=== PATIENT | male | born 1955 | race Caucasian/White ===

== ENCOUNTER → 2016-11-27 | Outpatient (CLI) | payer MEDICARE, OTHER ==
--- NOTE | 2016-11-28 07:54 | USB ---
Reason for exam: clinical finding. History: Family history of breast cancer in mother at age 42, breast cancer in maternal aunt, breast cancer in paternal aunt, and breast cancer in paternal uncle. Indicated problem(s): palpable abnormality in the left breast. Physical Findings: Nurse Summary: 2cm movable nodule (nurse dw). US Breast LT Left breast ultrasound includes all four quadrants, the retroareolar region and axilla. Finding demonstrates a 2.0 x 1.9 x 3.6cm irregular, solid, hypoechoic lesion at palpable at the posterior nipple. Suspect gynecomastia greater in the left breast though it is enlarging on CT from 2011 to 2016. These results were verbally communicated with the patient and result sheet given to the patient on 11/27/16. ASSESSMENT: Incomplete: need additional imaging evaluation, BI-RAD 0 RECOMMENDATION: Follow-up diagnostic mammogram of both breasts.
--- NOTE | 2016-11-28 07:56 | MM ---
Reason for exam: additional evaluation requested from abnormal screening. Last mammogram was performed 4 years and 6 months ago. History: Family history of breast cancer in mother at age 42, breast cancer in maternal aunt, breast cancer in paternal aunt, and breast cancer in paternal uncle. MG Diagnostic Mammo w CAD GREGORY Bilateral CC and MLO view(s) were taken. Prior study comparison: June 09, 2012, CAD bilateral diagnostic mammogram. The breast tissue is heterogeneously dense. This may lower the sensitivity of mammography. Finding: Architectural distortion in the upper outer quadrant of the right breast. These results were verbally communicated with the patient and result sheet given to the patient on 11/27/16. ASSESSMENT: Suspicious, BI-RAD 4 RECOMMENDATION: Surgical consultation and stereotactic core biopsy of the right breast. Negative mammogram should not deter biopsy if clinically palpable lesion. Called Dr. Delong with mammographic findings and has scheduled an appointment for the patient for 11/30/16 at 12:[address] Pagan. PRELIMINARY REPORT CALLED AND FAXED TO DR. PAGAN ON 11/28/16 /TP.
== END | disposition home or self-care (01) ==
LOC: RADUSWWP 15:05
PROVIDERS: ATTEND Family Medicine
DX: R92.8 Other abnormal and inconclusive findings on diagnostic imaging of breast (principal); N62 Hypertrophy of breast
CPT/HCPCS: 76641; G0204

== ENCOUNTER → 2016-11-30 | Outpatient (CLI) | payer MEDICARE, OTHER ==
--- NOTE | 2016-11-30 14:10 | USB ---
Reason for exam: clinical finding. History: Family history of breast cancer in mother at age 42, breast cancer in maternal aunt, breast cancer in paternal aunt, and breast cancer in paternal uncle. US Breast RT Right breast ultrasound includes all four quadrants, the retroareolar region and axilla. Finding demonstrates a 1.9 x 2.0 x 2.7cm irregular, hypoechoic lesion with strong shadowing at the lateral aspect at the nipple. This area of strong shadowing should be biopsied. These results were verbally communicated with the patient and result sheet given to the patient on 11/30/16. ASSESSMENT: Suspicious, BI-RAD 4 RECOMMENDATION: Ultrasound core biopsy of the right breast. Called with mammographic findings and has scheduled an appointment with Dr. Pagan. Biopsy scheduled for 12/05/16 at 1 o'clock. PRELIMINARY REPORT CALLED AND FAXED TO DR. PAGAN ON 11/30/16.
== END | disposition home or self-care (01) ==
LOC: RADUSWWP 12:54
PROVIDERS: ATTEND Surgery
DX: R92.8 Other abnormal and inconclusive findings on diagnostic imaging of breast (principal)

== ENCOUNTER → 2016-12-05 | Day surgery (SDC) | payer MEDICARE, OTHER ==
[2016-12-05 12:51] VITALS: RESP 16; BMI 28.5
[2016-12-05 14:23] VITALS: BP 115/73; PULSE 76; TEMP 98.1
--- NOTE | 2016-12-05 14:38 | MM ---
EXAMINATION TYPE: MG diagnostic mammo BI wo CAD, US biopsy breast VAD LT, US biopsy breast VAD RT DATE OF EXAM: 12/05/2016 CLINICAL HISTORY: R92.8 ABNORMAL MAMMOGRAM. TECHNIQUE: Ultrasound guided core biopsy of bilateral breasts. COMPARISON: Recent bilateral breast mammogram and ultrasound as well as chest CT studies from 2015 and 2011. FINDINGS: The procedure of ultrasound guided core biopsy was explained to the patient. Benefits, alternatives, and risks were discussed. An informed consent was then obtained. The patient was placed in supine positioning for imaging and for the procedure. Preprocedure imaging redemonstrates lobulated heterogeneous hypoechoic tissue posterior to the nipple in the bilateral breasts. The overlying skin was prepped and draped in usual sterile fashion. Lidocaine was used as anesthetic into the skin. Lidocaine with epinephrine is used as anesthetic into the deeper tissue up to area of concern in the bilateral. A laxmi was made with surgical scalpel. Under ultrasound guidance, a 12-gauge vacuum assisted biopsy gun device was used to obtain 3 core samples bilaterally. Following this, a biopsy clip was left in lesion. The patient tolerated the procedure well without any immediate complication. The patient was kept in the radiology department for short stay after the procedure and then discharged home in stable condition. Postprocedure single view mammogram shows successful deployment of clips bilaterally IMPRESSION: Successful, uncomplicated ultrasound guided core biopsy of area of concern in the bilateral breasts, full pathology results to follow. Low index of suspicion noted at time of procedure. Favor bilateral gynecomastia. Pathology Results: Benign A. BREAST, LEFT SITE A POSTERIOR NIPPLE, ULTRASOUND GUIDED CORE BIOPSY: PENDING CONSULTATION, SEE ADDENDUM/FINAL DIAGNOSIS. B. BREAST, RIGHT SITE A POSTERIOR NIPPLE, ULTRASOUND GUIDED CORE BIOPSY: PENDING CONSULTATION, SEE ADDENDUM/FINAL DIAGNOSIS. ADDENDUM REPORT LEFT BREAST, POSTERIOR, BIOPSY ([id number], PART A-B; 12/05/16): GYNECOMASTIA. SEE LETTER. Recommendation Manage clinically. MTDD
== END ==
LOC: RADUSWWP 12:29
PROVIDERS: ATTEND Surgery
DX: N62 Hypertrophy of breast (principal); R92.8 Other abnormal and inconclusive findings on diagnostic imaging of breast
CPT/HCPCS: 88305; 88342; 19083; 19084; G0204; A4648; J2001

== ENCOUNTER → 2017-04-10 | Outpatient (CLI) | payer MEDICARE, OTHER ==
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
== END | disposition home or self-care (01) ==
LOC: RADUSWWP 11:54
PROVIDERS: ATTEND Family Medicine
DX: K80.20 Calculus of gallbladder without cholecystitis without obstruction (principal)
CPT/HCPCS: 76700

== ENCOUNTER → 2017-04-27 | Outpatient (CLI) | payer MEDICARE, OTHER | END | disposition home or self-care (01) | LOC: RADPETMAIN 14:35 | PROVIDERS: ATTEND Internal Medicine Hematology & Oncology | DX: Z53.9 Procedure and treatment not carried out, unspecified reason (principal) ==

== ENCOUNTER → 2017-05-04 | Outpatient (CLI) | payer MEDICARE, OTHER ==
--- NOTE | 2017-05-06 10:02 | PE ---
EXAMINATION TYPE: PET CT fusion skull to thigh DATE OF EXAM: 05/04/2017 COMPARISON: Complete abdominal ultrasound April 10, 2017. CTA chest September 08, 2015. HISTORY: Colorectal cancer with liver metastases diagnosed on liver biopsy April 13, 2017 TECHNIQUE: Following the intravenous administration of 13.994 mCi of F-18 FDG, whole body images are performed from the skull base to the midthigh. Images are reviewed on the computer in the coronal, axial, and sagittal planes. Reconstructed rotating images are created on independent workstation and reviewed on the computer. A localization and attenuation correction CT is performed in conjunction with the PET scan. SCAN: Initial Scan FINDINGS: SKULL BASE AND NECK: No suspicious hypermetabolic uptake is seen. CHEST, MEDIASTINUM, AND HILAR REGION: No suspicious hypermetabolic uptake is seen. ABDOMEN AND PELVIS: There are multiple heterogeneous hypodense lesions scattered throughout the liver consistent with hepatic metastatic disease. Posterior segment right hepatic lobe lesion measures rou ghly 7.7 cm long axis axial image 136 with max SUV of 10.8. Irregular anterior right hepatic lobe les ion measures roughly 7.4 cm on long axis with max SUV of 11.21. There is irregular wall thickening in the cecum with focal hypermetabolic uptake, max SUV is 21.02 on axial image 210 likely reflecting site of primary neoplasm. Wall is slightly irregular at this level with suspected subcentimeter lymph node axial image 207. Normal bowel and bladder uptake is otherwise visualized. No suspicious bowel dilatation is seen. OSSEOUS STRUCTURES: No suspicious hypermetabolic uptake is present. OTHER CT: There is mild calcified plaque bilateral carotid bulbs. Anterior fusion plate in the lower cervical spine is noted.. Bilateral gynecomastia is seen. There is posterior bibasilar linear scarring and/or atelectasis. There is multilevel posterior interpedicular rods and screws throughout the lumbar spine. There is po sterior decompression with multilevel laminectomy defects and spinous process resection. Cholecystectomy clips are noted. Small vessel calcification is seen in the bilateral groin region. IMPRESSION: Primary neoplasm likely at level of cecum. Hepatic metastatic disease is noted.
== END | disposition home or self-care (01) ==
LOC: RADPETMAIN 10:36
PROVIDERS: ATTEND Internal Medicine Hematology & Oncology
DX: C18.9 Malignant neoplasm of colon, unspecified (principal); C78.7 Secondary malignant neoplasm of liver and intrahepatic bile duct
CPT/HCPCS: 78815; A9552

== ENCOUNTER 2017-05-16 11:56 | Day surgery (SDC) | payer MEDICARE, OTHER ==
[2017-05-15 11:47] VITALS: BMI 25.1
[~2017-05-16 11:56] MED LIST: HEPARIN SODIUM,PORCINE 5,000 UNIT/ML 1 ML VIAL SQ ONE; LACTATED RINGERS 1,000 ML IV SCH; MORPHINE SULFATE 4 MG/ML SYRINGE IV PRN; Pre Op ABX Message 1 EACH MISC MISCELLANE ONE; fentaNYL (PF) 50 MCG/ML 2 ML AMP IV PRN
[2017-05-16 12:19] VITALS: TEMP 97.7
[2017-05-16 12:33] LABS: Glucose,Whole Blood 197 mg/dL (75-99)
[2017-05-16] MEDS ORDERED: LIDOCAINE 1% 20 ML VIAL (10MG/ML) FOR IV START INTRADERMA ONE (12:36)
[2017-05-16] MEDS ORDERED: DEXAMETHASONE SOD PHOSPHATE 10 MG/ML 1 ML VIAL IV ONE (12:41)
[2017-05-16] MEDS ORDERED: ONDANSETRON 4 MG/2 ML VIAL IVP ONE (12:41)
[2017-05-16] MEDS ORDERED: HYDROmorphone (PF) 1 MG/ML ONE (12:49)
[2017-05-16] MEDS ORDERED: MIDAZOLAM 2 MG/2 ML VIAL ONE (12:49)
[2017-05-16] MEDS ORDERED: PROPOFOL 10 MG/ML 20 ML VIAL IV ONE (12:49)
[2017-05-16] MEDS ORDERED: fentaNYL (PF) 50 MCG/ML 2 ML AMP ONE (12:49)
[2017-05-16] MEDS ORDERED: LIDOCAINE 1% INJ 10MG/ML (20 ML MDV) ONE (12:49)
[2017-05-16] MEDS ORDERED: HEPARIN SODIUM,PORCINE 100 UNIT/ML 5 ML VIAL IV ONE (13:20)
[2017-05-16] MEDS ORDERED: SODIUM CHLORIDE 0.9% 50 ML with ceFAZolin 2,000 MG IV ONE ×2 (13:20)
[2017-05-16] MEDS ORDERED: BUPIVACAINE (PF) 0.25% 30 ML VIAL SQ ONE (13:20)
[2017-05-16] MEDS ORDERED: LACTATED RINGERS 1,000 ML IV ONE (13:38)
[2017-05-16] MEDS ORDERED: NALOXONE 0.4 MG/ML 1 ML VIAL IV PRN (13:58)
--- NOTE | 2017-05-16 14:07 | P.OP ---
Date of Procedure: 05/16/17 Preoperative Diagnosis: Metastatic colon cancer Postoperative Diagnosis: Metastatic colon cancer Procedure(s) Performed: Mediport placement with fluoroscopic assistance Implants: Mediport Anesthesia: local Surgeon: Nehemiah Martin Pathology: none sent Condition: stable Disposition: same day Indications for Procedure: 61-year-old gentleman with a history of metastatic colon cancer. According to discussion with weaned him and his oncologist, plan for chemotherapy was established. Secondary to this, the patient presents for Mediport placement. The patient was explained the risks, benefits and alternatives to the procedure. He did provide his consent prior to attending the operating suite. Operative Findings: Mediport was noted to have adequate flush and withdrawal and was noted to be in place under fluoroscopy. Description of Procedure: The patient was brought into the operating suite and placed in supine position on operating table. Sedation was provided by anesthesia and the patient was prepped and draped in regular sterile fashion. Local anesthetic was administered. A needle was then placed into the subclavian vein. A guidewire was used and location was noted by fluoroscopy. Once it was noted to be in appropriate position, a pocket was created to hold the Mediport. A dilator sheath was then placed over the guidewire under fluoroscopic guidance. A catheter was then placed between the pocket and the dilator sheath. This was noted to be in place. The dilator sheath was then removed. The port was then attached to the catheter and locked into place. The port was secured to the chest wall to the prepectoral fascia. This was done with a 2-0 Prolene suture. The port was then attached to Mayberry needle and was noted to flush and withdraw with ease. The skin incision was closed with a running 4-0 Vicryl subcuticular suture. Heparin lock was administered into the Mediport. Sterile dressing was applied. The patient was then awakened in the operating suite.
--- NOTE | 2017-05-16 14:08 | P.DS ---
Providers Attending physician: Nehemiah Martin DO Primary care physician: Demarcus Delong Pertinent Studies: Chest x-ray postop Procedures: Mediport placement with fluoroscopic guidance Patient Condition at Discharge: Good Plan - Discharge Summary New Discharge Prescriptions: Continue oxyCODONE-APAP 10-325MG [Percocet 10-325 mg] 1 tab PO Q4-6H PRN PRN Reason: Pain fentaNYL 100MCG/HR PATCH [Duragesic 100MCG/HR] 1 patch TRANSDERM Q48H Diazepam [Valium] 10 mg PO DAILY PRN PRN Reason: Anxiety Venlafaxine HCl ER [Effexor XR] 150 mg PO DAILY Docusate [Colace] 100 mg PO DAILY Atorvastatin [Lipitor] 20 mg PO PC-SUPPER metFORMIN HCL [Glucophage] 1,000 mg PO BID glipiZIDE XL [Glucotrol XL] 10 mg PO DAILY Lidocaine 5% Patch [Lidoderm 5% Patch] 1 patch TRANSDERM DAILY PRN PRN Reason: Pain Venlafaxine HCl ER [Effexor XR] 75 mg PO DAILY Omeprazole [PriLOSEC] 20 mg PO BID fentaNYL 75MCG/HR PATCH [Duragesic 75MCG/HR] 1 patch TRANSDERM Q48H Ibuprofen [Motrin] 800 mg PO Q6H PRN PRN Reason: Pain Discharge Medication List Diazepam [Valium] 10 mg PO DAILY PRN 09/21/13 [History] Venlafaxine HCl ER [Effexor XR] 150 mg PO DAILY 09/21/13 [History] fentaNYL 100MCG/HR PATCH [Duragesic 100MCG/HR] 1 patch TRANSDERM Q48H 09/21/13 [ History] oxyCODONE-APAP 10-325MG [Percocet 10-325 mg] 1 tab PO Q4-6H PRN 09/21/13 [ History] Docusate [Colace] 100 mg PO DAILY 09/22/13 [History] Atorvastatin [Lipitor] 20 mg PO PC-SUPPER 12/03/16 [History] metFORMIN HCL [Glucophage] 1,000 mg PO BID 12/03/16 [History] Lidocaine 5% Patch [Lidoderm 5% Patch] 1 patch TRANSDERM DAILY PRN 04/12/17 [ History] Omeprazole [PriLOSEC] 20 mg PO BID 04/12/17 [History] Venlafaxine HCl ER [Effexor XR] 75 mg PO DAILY 04/12/17 [History] fentaNYL 75MCG/HR PATCH [Duragesic 75MCG/HR] 1 patch TRANSDERM Q48H 04/12/17 [ History] glipiZIDE XL [Glucotrol XL] 10 mg PO DAILY 04/12/17 [History] Ibuprofen [Motrin] 800 mg PO Q6H PRN 05/15/17 [History] Follow up Appointment(s)/Referral(s): Nehemiah Martin DO [Doctor of Osteopathic Medicine] - As Needed (Please call office with any questions or concerns with mediport) Activity/Diet/Wound Care/Special Instructions: OK to remove dressing in [address] dressing as needed OK to begin chemotherapy OK to shower on 05/17/2017 Discharge Disposition: HOME SELF-CARE
[2017-05-16 14:13] VITALS: RESP 16
[2017-05-16 14:28] LABS: Glucose,Whole Blood 175 mg/dL (75-99)
--- NOTE | 2017-05-16 14:34 | XR ---
EXAMINATION TYPE: XR chest 1V DATE OF EXAM: 05/16/2017 COMPARISON: Prior chest x-ray 10/29/2013 HISTORY: Mediport placement TECHNIQUE: Single frontal view of the chest is obtained. FINDINGS: There is been interval placement of a Mediport over the right pectoral region, distal tip of the catheter is within the right atrium. No evident pneumothorax. Right subclavian atelectasis. No pleural effusion. Postop change again noted cervical spine. IMPRESSION: No evident complication status post Mediport placement.
[2017-05-16 14:44] VITALS: PULSE 81
[2017-05-16 14:45] VITALS: BP 113/72
--- NOTE | 2017-05-16 15:58 | FL ---
Fluoroscopy HISTORY: Mediport insertion 1.14 minutes fluoroscopy time supplied to the referring clinician. 1 intraoperative C-arm images doc ument the procedure. See dictated report from general surgery.
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
== END 2017-05-16 15:19 | disposition home or self-care (01) ==
LOC: OR 11:56
PROVIDERS: ATTEND Surgery
DX: C18.9 Malignant neoplasm of colon, unspecified (principal); E78.5 Hyperlipidemia, unspecified; K21.9 Gastro-esophageal reflux disease without esophagitis; E11.9 Type 2 diabetes mellitus without complications; Z79.899 Other long term (current) drug therapy; G89.29 Other chronic pain; Z90.49 Acquired absence of other specified parts of digestive tract; Z79.84 Long term (current) use of oral hypoglycemic drugs; Z79.891 Long term (current) use of opiate analgesic
CPT/HCPCS: 36561; 77001; 71045; C1788; J2250; J1644; J1642; J1100; J2405; J2001; J3010; J1170; J0690; J2704

== ENCOUNTER 2017-05-22 13:38 | Day surgery (SDC) | payer MEDICARE, OTHER ==
[2017-05-21 12:52] VITALS: BMI 36.5
[2017-05-22 14:04] VITALS: BP 136/76; PULSE 109; RESP 18; TEMP 98.1
--- NOTE | 2017-05-22 17:46 | IR ---
Port-A-Cath gram HISTORY: Malfunctioning Port-A-Cath Real-time fluoroscopy performed of the Port-A-Cath. Gentle hand injection of contrast material perfor med under fluoroscopic guidance. Following contrast injection there was no complication. Catheter was flushed with sterile saline and subsequently heparin flush. 624 intraoperative images. 1.2 minutes fluoroscopy time. Port-A-Cath in the right pectoral region shows a kink in the proximal catheter. Contrast material cou rses through the catheter, there is no leak. Distal tip of the catheter is within the right atrium. IMPRESSION: Kink in the proximal catheter, tip of the catheter abuts the atrial wall.
== END 2017-05-22 14:53 | disposition home or self-care (01) ==
LOC: CATHCVL 13:38
PROVIDERS: ATTEND Radiology Diagnostic Radiology
DX: T82.594A Other mechanical complication of infusion catheter, initial encounter (principal); C18.0 Malignant neoplasm of cecum; C78.7 Secondary malignant neoplasm of liver and intrahepatic bile duct; Z71.3 Dietary counseling and surveillance; Z79.84 Long term (current) use of oral hypoglycemic drugs; Y83.8 Other surgical procedures as the cause of abnormal reaction of the patient, or of later complication, without mention of misadventure at the time of the procedure; Z79.899 Other long term (current) drug therapy
CPT/HCPCS: 36598

== ENCOUNTER → 2017-05-24 | Day surgery (SDC) | payer MEDICARE, OTHER ==
[~2017-05-24] MED LIST changes: +BUPIVACAINE (PF) 0.5% 30 ML VIAL SQ ONE; +DEXAMETHASONE SOD PHOSPHATE 10 MG/ML 1 ML VIAL IV ONE; +HEPARIN SODIUM,PORCINE 100 UNIT/ML 5 ML VIAL IV ONE; -HEPARIN SODIUM,PORCINE 5,000 UNIT/ML 1 ML VIAL SQ ONE; +LIDOCAINE 1% 20 ML VIAL (10MG/ML) FOR IV START INTRADERMA ONE; +MIDAZOLAM 2 MG/2 ML VIAL IV PRN; +MIDAZOLAM 2 MG/2 ML VIAL ONE; +NALOXONE 0.4 MG/ML 1 ML VIAL IV PRN; +ONDANSETRON 4 MG/2 ML VIAL IVP ONE; +PROPOFOL 10 MG/ML 20 ML VIAL IV ONE; +SCOPOLAMINE 1.5MG/72HR PATCH TRANSDERM ONE; +ceFAZolin IN SWFI 2 GM/20 ML SYRINGE IVP ONE; +fentaNYL (PF) 50 MCG/ML 2 ML AMP IV ONE; -fentaNYL (PF) 50 MCG/ML 2 ML AMP IV PRN; +fentaNYL (PF) 50 MCG/ML 2 ML AMP ONE
[2017-05-24 14:02] LABS: Glucose,Whole Blood 167 mg/dL (75-99)
--- NOTE | 2017-05-24 16:06 | FL ---
Fluoroscopy HISTORY: Port-A-Cath placement 20 seconds fluoroscopy time supplied to the referring clinician. 1 intraoperative C-arm images docum ent the procedure. See dictated report from general surgery.
--- NOTE | 2017-05-24 16:12 | P.OP ---
Date of Procedure: 05/24/17 Preoperative Diagnosis: Malfunctioning Mediport Postoperative Diagnosis: Malfunctioning Mediport Procedure(s) Performed: Removal Mediport Placement of 8-English mediport Implants: 8-English Mediport Anesthesia: local Surgeon: Nehemiah Martin Estimated Blood Loss (ml): 2 Pathology: none sent Condition: stable Disposition: same day Indications for Procedure: 61-year-old male with history of metastatic colon cancer presented secondary to Mediport malfunction. His previously placed Mediport was not withdrawing blood but was able to infuse. Due to the pressure that his home therapy infusion would run, his Mediport continued to malfunction. On examination with radiology , there was a possible kinking of the proximal portion of the Mediport. Secondary to this, we plan on replacing this Mediport with an 8-English Mediport under fluoroscopy. The patient was explained the risks, benefits and alternatives to this procedure and provided consent prior to attending the operating suite. Operative Findings: Malfunctioning Mediport, proximal kink in catheter Description of Procedure: The patient was brought into the operating suite and placed in supine position on the operating table. Sedation was provided by anesthesia. The patient was then prepped and draped in regular sterile fashion. Local anesthetic was administered over the previous Mediport site. An incision was made over the previous scar and extended laterally. Dissection was carried to the Mediport and the catheter was noted to be kinked at the hub connecting the catheter to the port. The port was removed from the sutures that connected the port to the prepectoral fascia. The port was then cut from the catheter. A 0.035 Glidewire was placed into the catheter under fluoroscopic guidance and was noted to be in appropriate position. This catheter was then removed. A dilator sheath was placed over the Glidewire under fluoroscopic guidance. The Glidewire and the dilator sheath was removed. The 8-English catheter was then placed through the dilator sheath and under fluoroscopic guidance. The catheter was cut and attached to the port. The lock was then placed. The port was then sutured into place with the prepectoral fascia. A Mayberry needle was inserted into the port and adequate withdrawal and flushing was noted. Multiple images were taken under fluoroscopy to ensure no kinking. Heparin lock was then placed. 3-0 Vicryl sutures were used to close the subdermal layer in interrupted fashion. A 4-0 Vicryl subcuticular suture was then used to close the skin and running fashion. The patient was awakened in the operating suite and taken to postanesthesia care unit in stable condition.
[2017-05-24 16:18] VITALS: TEMP 97.8
--- NOTE | 2017-05-24 16:36 | XR ---
EXAMINATION TYPE: XR chest 1V DATE OF EXAM: 05/24/2017 COMPARISON: 05/16/2017 HISTORY: Mediport check TECHNIQUE: Single frontal view of the chest is obtained. FINDINGS: There is no focal air space opacity, pleural effusion, or pneumothorax seen. The cardiac silhouette size is within normal limits. The osseous structures are intact. Mediport catheter seen with the tip overlying the SVC. No pneumothorax. Diffuse osteopenia and arthropathy shoulders. Postsu rgical change overlying the cervical spine. IMPRESSION: Mediport appears with the tip overlying the SVC and no sizable pneumothorax.
[2017-05-24 16:49] VITALS: BP 122/68; PULSE 79; RESP 15
== END ==
LOC: OR 13:28
PROVIDERS: ATTEND Surgery
DX: T82.514A Breakdown (mechanical) of infusion catheter, initial encounter (principal); C78.5 Secondary malignant neoplasm of large intestine and rectum; E78.5 Hyperlipidemia, unspecified; E11.9 Type 2 diabetes mellitus without complications; K21.9 Gastro-esophageal reflux disease without esophagitis; Z79.84 Long term (current) use of oral hypoglycemic drugs; Z79.1 Long term (current) use of non-steroidal anti-inflammatories (NSAID); Z79.899 Other long term (current) drug therapy
CPT/HCPCS: 77001; 71045; 36582; C1788; J2250; J1642; J1100; J2405; J3010; J2704; J0690

== ENCOUNTER 2017-06-05 21:51 | Emergency (ER) | payer MEDICARE, OTHER ==
[2017-06-05 22:00] VITALS: RESP 18
[2017-06-05] MEDS ORDERED: ONDANSETRON 4 MG/2 ML VIAL IVP STA ×2 (22:07→23:59)
[2017-06-05] MEDS ORDERED: SODIUM CHLORIDE 0.9% 1,000 ML IV STA ×2 (22:07)
[2017-06-05] MEDS ORDERED: MORPHINE SULFATE 4 MG/ML SYRINGE IVP STA (22:17)
--- NOTE | 2017-06-05 22:17 | ED ---
General Adult HPI - General Chief complaint: Weakness Stated complaint: Cancer complications Time Seen by Provider: 06/05/17 21:57 Source: patient, RN notes reviewed, old records reviewed Mode of arrival: ambulatory Limitations: no limitations - History of Present Illness Initial comments: This is a 61-year-old male the ER for evaluation. Patient is today for evaluation regards to weakness. Patient currently going through chemotherapy decreased appetite and eating and drinking appropriately. Patient was sent in by his oncologist for fluid resuscitation. Patient himself aside from feeling weakness with no appetite denies complaints no chest pain or shortness of breath no fevers states that he does have pain but this is normal pain - Related Data Home Medications Medication Instructions Recorded Confirmed Diazepam [Valium] 10 mg PO DAILY PRN 09/21/13 06/05/17 Venlafaxine HCl ER [Effexor XR] 150 mg PO DAILY 09/21/13 06/05/17 fentaNYL 100MCG/HR PATCH 1 patch TRANSDERM Q48H 09/21/13 06/05/17 [Duragesic 100MCG/HR] metFORMIN HCL [Glucophage] 1,000 mg PO BID 12/03/16 06/05/17 Lidocaine 5% Patch [Lidoderm 5% 1 patch TRANSDERM DAILY PRN 04/12/17 06/05/17 Patch] Omeprazole [PriLOSEC] 20 mg PO BID 04/12/17 06/05/17 Venlafaxine HCl ER [Effexor XR] 75 mg PO DAILY 04/12/17 06/05/17 fentaNYL 75MCG/HR PATCH [Duragesic 1 patch TRANSDERM Q48H 04/12/17 06/05/17 75MCG/HR] glipiZIDE XL [Glucotrol XL] 10 mg PO DAILY 04/12/17 06/05/17 Ibuprofen [Motrin] 800 mg PO Q6H PRN 05/15/17 06/05/17 Ondansetron [Zofran] 4 mg PO Q8HR PRN 06/05/17 06/05/17 Polyethylene Glycol 3350 [Miralax] 17 gm PO QAM 06/05/17 06/05/17 Sennosides-Docusate Sodium 1 tab PO HS 06/05/17 06/05/17 [Senokot-S] oxyCODONE HCL [Roxicodone] 15 mg PO TID PRN 06/05/17 06/05/17 Allergies Allergy/AdvReac Type Severity Reaction Status Date / Time No Known Allergies Allergy Verified 06/05/17 22:27 Review of Systems ROS Statement: Those systems with pertinent positive or pertinent negative responses have been documented in the HPI. ROS Other: All systems not noted in ROS Statement are negative. Past Medical History Past Medical History: Blood Disorder, Cancer, GERD/Reflux, Hyperlipidemia, Musculoskeletal Disorder Additional Past Medical History / Comment(s): Chronic Back Pain, DDD; NT LT SCIATIC AREA TO TOES. Hiatal Hernia. ANEMIA., COLON/LIVER CANCER History of Any Multi-Drug Resistant Organisms: None Reported Past Surgical History: Back Surgery, Cholecystectomy Additional Past Surgical History / Comment(s): BACK SURG X5, HAS HARDWARE. Splenectomy, Abdominal surgery unspecified, Endoscopy x30. LIVER BX W/ LAP DARRON 04/13/17. PORT A CATH, Past Anesthesia/Blood Transfusion Reactions: No Reported Reaction Additional Past Anesthesia/Blood Transfusion Reaction / Comment(s): Got 9 units of blood when had spleen out in 1977 Past Psychological History: Depression Smoking Status: Never smoker Past Alcohol Use History: None Reported Past Drug Use History: None Reported - Past Family History Mother Family Medical History: Cancer General Exam Limitations: no limitations General appearance: alert, in no apparent distress Head exam: Present: atraumatic, normocephalic, normal inspection Eye exam: Present: normal appearance, PERRL, EOMI. Absent: scleral icterus, conjunctival injection, periorbital swelling ENT exam: Present: normal exam, mucous membranes moist Neck exam: Present: normal inspection. Absent: tenderness, meningismus, lymphadenopathy Respiratory exam: Present: normal lung sounds bilaterally. Absent: respiratory distress, wheezes, rales, rhonchi, stridor Cardiovascular Exam: Present: regular rate, normal rhythm, normal heart sounds. Absent: systolic murmur, diastolic murmur, rubs, gallop, clicks GI/Abdominal exam: Present: soft, normal bowel sounds. Absent: distended, tenderness, guarding, rebound, rigid Extremities exam: Present: normal inspection, full ROM, normal capillary refill. Absent: tenderness, pedal edema, joint swelling, calf tenderness Back exam: Present: normal inspection Neurological exam: Present: alert, oriented X3, CN II-XII intact Psychiatric exam: Present: normal affect, normal mood Skin exam: Present: warm, dry, intact, normal color. Absent: rash Course Vital Signs 06/05/17 06/05/17 06/05/17 21:53 22:38 23:29 Temperature 98.9 F Pulse Rate 88 75 87 Respiratory 18 18 18 Rate Blood Pressure 140/82 136/73 133/77 O2 Sat by Pulse 98 100 100 Oximetry 06/06/17 06/06/17 00:05 01:07 Temperature 97.7 F Pulse Rate 85 72 Respiratory 18 18 Rate Blood Pressure 128/77 137/72 O2 Sat by Pulse 100 97 Oximetry - Reevaluation(s) Reevaluation #1: 06/05/17 22:16 Medical record is reviewed EKG Findings - EKG Comments: EKG Findings:: EKG shows sinus rhythm rate of 88, AK 144, QRS 06, QTc 467 Medical Decision Making - Medical Decision Making 61 male the ER for evaluation of weakness, comes in for fluid resuscitation. Patient feels better can be discharged home - Lab Data Result diagrams: 06/05/17 22:01 06/05/17 22:01 Lab Results 06/05/17 06/05/17 Range/Units 22:01 22:01 WBC 4.5 (3.8-10.6) k/uL RBC 3.51 L (4.30-5.90) m/uL Hgb 8.3 L (13.0-17.5) gm/dL Hct 26.9 L (39.0-53.0) % MCV 76.9 L D (80.0-100.0) fL MCH 23.6 L (25.0-35.0) pg MCHC 30.7 L (31.0-37.0) g/dL RDW 16.8 H (11.5-15.5) % Plt Count 232 (150-450) k/uL Neutrophils % 68 % Lymphocytes % 24 % Monocytes % 4 % Eosinophils % 2 % Basophils % 0 % Neutrophils # 3.0 (1.3-7.7) k/uL Lymphocytes # 1.1 (1.0-4.8) k/uL Monocytes # 0.2 (0-1.0) k/uL Eosinophils # 0.1 (0-0.7) k/uL Basophils # 0.0 (0-0.2) k/uL Hypochromasia Slight Anisocytosis Slight Microcytosis Slight Sodium 138 (137-145) mmol/L Potassium 3.1 L (3.5-5.1) mmol/L Chloride 94 L (98-107) mmol/L Carbon Dioxide 33 H (22-30) mmol/L Anion Gap 11 mmol/L BUN 10 (9-20) mg/dL Creatinine 0.50 L (0.66-1.25) mg/dL Est GFR (CKD-EPI)AfAm >90 (>60 ml/min/1.73 sqM) Est GFR (CKD-EPI)NonAf >90 (>60 ml/min/1.73 sqM) Glucose 130 H (74-99) mg/dL Calcium 8.8 (8.4-10.2) mg/dL Phosphorus 3.2 (2.5-4.5) mg/dL Magnesium 1.8 (1.6-2.3) mg/dL Total Bilirubin 0.5 (0.2-1.3) mg/dL AST 26 (17-59) U/L ALT 16 L (21-72) U/L Alkaline Phosphatase 234 H (38-126) U/L Total Protein 6.2 L (6.3-8.2) g/dL Albumin 3.1 L (3.5-5.0) g/dL - Radiology Data Radiology results: report reviewed (CT brain is negative for acute disease), image reviewed Disposition Clinical Impression: Dehydration, Weakness Disposition: HOME SELF-CARE Condition: Good Instructions: Weakness (ED) Referrals: Demarcus Delong DO [Primary Care Provider] - 1-2 days
[2017-06-05 22:24] LABS: Anisocytosis Slight; Basophils % (A) 0 %; Eosinophils # (A) 0.1 k/uL (0-0.7); Eosinophils % (A) 2 %; HCT 26.9 % (39.0-53.0); HGB 8.3 gm/dL (13.0-17.5); Hypochromasia Slight; Lymphocytes # (A) 1.1 k/uL (1.0-4.8); Lymphocytes % (A) 24 %; MCH 23.6 pg (25.0-35.0); MCHC 30.7 g/dL (31.0-37.0); Mean Platelet Volume 7.8; Microcytosis Slight; Monocytes # (A) 0.2 k/uL (0-1.0); Monocytes % (A) 4 %; Neutrophils % (A) 68 %; Platelet Count 232 k/uL (150-450); RBC 3.51 m/uL (4.30-5.90); RDW 16.8 % (11.5-15.5); WBC 4.5 k/uL (3.8-10.6)
[2017-06-05 22:27] LABS: MCV 76.9 fL (80.0-100.0)
[2017-06-05] MEDS ORDERED: MORPHINE SULFATE/PF 10MG/10ML VL ONE (22:35)
[2017-06-05 22:37] LABS: ALT 16 U/L (21-72); AST 26 U/L (17-59); Albumin 3.1 g/dL (3.5-5.0); Alkaline Phosphatase 234 U/L (38-126); Anion Gap 11 mmol/L; Blood Urea Nitrogen 10 mg/dL (9-20); Calcium 8.8 mg/dL (8.4-10.2); Carbon Dioxide 33 mmol/L (22-30); Chloride 94 mmol/L (98-107); Glucose 130 mg/dL (74-99); Magnesium 1.8 mg/dL (1.6-2.3); Phosphorus 3.2 mg/dL (2.5-4.5); Potassium 3.1 mmol/L (3.5-5.1); Sodium 138 mmol/L (137-145); Total Bilirubin 0.5 mg/dL (0.2-1.3); Total Protein 6.2 g/dL (6.3-8.2)
[2017-06-05] MEDS ORDERED: MORPHINE SULFATE/PF 10MG/10ML VL IVP STA (22:37)
[2017-06-05] MEDS ORDERED: POTASSIUM CHLORIDE ER 20 MEQ TAB.ER PO STA (23:11)
--- NOTE | 2017-06-05 23:32 | CT ---
EXAMINATION TYPE: CT brain wo con DATE OF EXAM: 06/05/2017 COMPARISON: NONE HISTORY: weakness CT DLP: 1029.90 mGycm Automated exposure control for dose reduction was used. FINDINGS: There is some cerebral cortical atrophy. There is patchy hypodensity in the periventricular white mat ter. There is no mass effect nor midline shift. There is no sign of intracranial hemorrhage. Calvariu m is intact. IMPRESSION: ATROPHY AND CHRONIC SMALL VESSEL ISCHEMIA. NO ACUTE INTRACRANIAL ABNORMALITY.
[2017-06-06 00:09] VITALS: TEMP 97.7
[2017-06-06] MEDS ORDERED: POTASSIUM CHLORIDE ER 20 MEQ TAB.ER PO STA (00:15)
[2017-06-06] MEDS ORDERED: SODIUM CHLORIDE 0.9% 1,000 ML IV STA (00:29)
[2017-06-06 01:08] VITALS: BP 137/72; PULSE 72
== END 2017-06-06 01:18 | disposition home or self-care (01) ==
LOC: EC 21:51
DX: E86.0 Dehydration (principal); R53.1 Weakness; K21.9 Gastro-esophageal reflux disease without esophagitis; E78.5 Hyperlipidemia, unspecified; D64.9 Anemia, unspecified; C18.9 Malignant neoplasm of colon, unspecified; C78.7 Secondary malignant neoplasm of liver and intrahepatic bile duct; F32.9 Major depressive disorder, single episode, unspecified; Z79.84 Long term (current) use of oral hypoglycemic drugs; Z79.899 Other long term (current) drug therapy; Z53.8 Procedure and treatment not carried out for other reasons
CPT/HCPCS: 99285; 96374; 96375; 96376; 36415; 93005; 80053; 83735; 84100; 85025; 70450; 96361 ×3; J2405 ×2; J2270

== ENCOUNTER → 2017-08-17 | Outpatient (CLI) | payer MEDICARE, OTHER ==
--- NOTE | 2017-08-18 13:19 | PE ---
EXAMINATION TYPE: PET CT fusion skull to thigh DATE OF EXAM: 08/17/2017 COMPARISON: Prior PET/CT May 04, 2017. HISTORY: Colorectal cancer progress study after completing chemotherapy August 05. TECHNIQUE: Following the intravenous administration of 12.914 mCi of F-18 FDG, whole body images are performed from the skull base to the midthigh. Images are reviewed on the computer in the coronal, axial, and sagittal planes. Reconstructed rotating images are created on independent workstation and reviewed on the computer. A noncontrast CT is performed in conjunction with the PET scan. SCAN: Subsequent Scan FINDINGS: SKULL BASE AND NECK: No new areas of suspicious hypermetabolic uptake is seen. CHEST, MEDIASTINUM, AND HILAR REGION: No new areas of suspicious hypermetabolic uptake are identifie d. ABDOMEN AND PELVIS: Multiple hypodense lesions throughout the liver consistent with metastatic diseas e is redemonstrated. There are diminished in size and better defined on current study without abnorma l hypermetabolic uptake. For reference posterior right hepatic lobe lesion measures 5.9 cm long axis axial image 133 versus 8.2 cm long axis prior study axial image 136. Abnormal area of wall thickening and hypermetabolic uptake and cecum is not as well seen on current s tudy after treatment. No new areas of suspicious hypermetabolic uptake are identified. OSSEOUS STRUCTURES: Mild diffuse uptake is felt to reflect product of treatment change. No new suspic ious focal hypermetabolic uptake is present. OTHER CT: There is new right subclavian Mediport catheter terminating at cavoatrial junction. Rounded gynecomastia is redemonstrated. Mild calcified plaque bilateral carotid bulb level is redemonstrated. There is redemonstration of posterior interpedicular rods and screws in the mid to lower lumbar spine . Posterior decompression is again seen. Anterior fusion plate lower cervical spine is again seen. Cholecystectomy clips are redemonstrated. IMPRESSION: Positive treatment response without evidence of active disease in the cecum or liver. No new metastatic lesions identified.
== END | disposition home or self-care (01) ==
LOC: RADPETMAIN 10:24
PROVIDERS: ATTEND Internal Medicine Hematology & Oncology
DX: C18.0 Malignant neoplasm of cecum (principal)
CPT/HCPCS: 78815; A9552

== ENCOUNTER → 2017-12-28 | Outpatient (CLI) | payer MEDICARE, OTHER ==
--- NOTE | 2017-12-28 14:24 | PE ---
EXAMINATION TYPE: PET CT fusion skull to thigh DATE OF EXAM: 12/28/2017 COMPARISON: Most recent PET CT August 17, 2017 HISTORY: Colon cancer progress study completed chemotherapy November 26, 2017. TECHNIQUE: Following the intravenous administration of 11.532 mCi of F-18 FDG, whole body images are performed from the skull base to the midthigh. Images are reviewed on the computer in the coronal, axial, and sagittal planes. Reconstructed rotating images are created on independent workstation and reviewed on the computer. A noncontrast CT is performed in conjunction with the PET scan. SCAN: Subsequent Scan FINDINGS: SKULL BASE AND NECK: No suspicious areas of hypermetabolic uptake are present on current study. Diff use mild hypermetabolic Uptake medial right shoulder muscle is presumed inflammatory, correlate clini wilber. CHEST, MEDIASTINUM, AND HILAR REGION: No new areas of suspicious hypermetabolic uptake are seen. ABDOMEN AND PELVIS: Heterogeneous hypodense lesions consistent with metastatic disease remain present . Anterior lesion measures 7.1 cm long axis axial image 140 versus 7.4 cm prior study. Posterior lesi on measures 5.9 cm on long axis current study image 140 not significantly changed from prior. Despite nonsignificant change in size there are some vague areas of hypermetabolic uptake now identified, fo r reference axial image 146 anterior right hepatic lobe hypodense lesion has max SUV of 4.25. Some ad ditional new hypermetabolic involvement suspected inferior right hepatic lobe. OSSEOUS STRUCTURES: No new areas of suspicious hypermetabolic uptake are seen. OTHER CT: There is stable right subclavian Mediport catheter terminating at cavoatrial junction. Rounded gynecomastia is redemonstrated. Mild calcified plaque bilateral carotid bulb level is redemonstrated. There is redemonstration of posterior interpedicular rods and screws in the mid to lower lumbar spine . Posterior decompression is again seen. Anterior fusion plate lower cervical spine is again seen. Cholecystectomy clips are redemonstrated. IMPRESSION: Cannot exclude new areas of active recurrent neoplasm in the liver with new areas of abno rmal metabolic uptake present. Lesion size and number burden not significantly changed from most rece nt CT. No convincing evidence of new metastatic disease noted.
== END | disposition home or self-care (01) ==
LOC: RADPETMAIN 09:58
PROVIDERS: ATTEND Internal Medicine Hematology & Oncology
DX: R94.5 Abnormal results of liver function studies (principal); C18.0 Malignant neoplasm of cecum
CPT/HCPCS: 78815; A9552

== ENCOUNTER → 2018-02-18 | Day surgery (SDC) | payer MEDICARE, OTHER ==
[2018-02-17 08:44] VITALS: BMI 25.5
[~2018-02-18] MED LIST changes: -BUPIVACAINE (PF) 0.5% 30 ML VIAL SQ ONE; -HEPARIN SODIUM,PORCINE 100 UNIT/ML 5 ML VIAL IV ONE; +HYDROmorphone 0.5 MG/0.5 ML SYRINGE IVP PRN; -LACTATED RINGERS 1,000 ML IV SCH; -LIDOCAINE 1% 20 ML VIAL (10MG/ML) FOR IV START INTRADERMA ONE; +LIDOCAINE 1% 20 ML VIAL (10MG/ML) FOR IV START INTRADERMA PRN; +LIDOCAINE 1% INJ 10MG/ML (20 ML MDV) ONE; -MIDAZOLAM 2 MG/2 ML VIAL IV PRN; -MORPHINE SULFATE 4 MG/ML SYRINGE IV PRN; -NALOXONE 0.4 MG/ML 1 ML VIAL IV PRN; -Pre Op ABX Message 1 EACH MISC MISCELLANE ONE; -ceFAZolin IN SWFI 2 GM/20 ML SYRINGE IVP ONE; -fentaNYL (PF) 50 MCG/ML 2 ML AMP IV ONE
[2018-02-18 09:28] VITALS: TEMP 97.9
[2018-02-18] MEDS: LACTATED RINGERS 1,000 ML IV SCH ×2 (09:34→10:15)
[2018-02-18 09:39] LABS: Glucose,Whole Blood 130 mg/dL (75-99)
--- NOTE | 2018-02-18 10:48 | P.PCN ---
Date of Procedure: 02/18/18 Procedure(s) Performed: Procedure: Esophagogastroduodenoscopy and biopsy. Preoperative diagnosis: Postprandial abdominal pain. Postoperative diagnosis: 1. Sliding hiatal hernia with no definite esophagitis or complicated reflux disease. 2. Mild antral gastritis. 3. Biopsies obtained from duodenum, antrum and esophagus. Preparation sedation: Was provided by anesthesia. Brief clinical history: The patient is a 62-year-old male with history of metastatic colon cancer who is scheduled for this evaluation because of postprandial upper and midabdominal pain for the last couple months or so despite therapy with PPI. This procedure is planned to rule out peptic ulcer disease. Procedure: With the patient on his left lateral decubitus position and after informed consent and adequate sedation, I passed the Olympus-GIF 160 video upper endoscope through the cricopharyngeus down the esophagus. GE junction was around 40-41 cm from the incisors and there was a very small sliding hiatal hernia with no obvious esophagitis or complicated reflux disease. The endoscope was then passed into the stomach which was insufflated with air and inspected in detail including the retroflex view in the cardia. There was some mottling and erythema in the antrum but no ulcers or erosions. Pyloric channel , duodenal bulb, post bulbar area and descending duodenum appeared within normal limits. I obtained biopsies from the duodenum, antrum and esophagus then the endoscope was withdrawn. The patient tolerated the procedure well. Plan: The patient was reassured. Will await biopsy results. Further plans will be made based on his course and biopsy results.
[2018-02-18 11:06] VITALS: BP 117/69; PULSE 72; RESP 16
== END ==
LOC: ORWHC2ENDO 07:54
DX: K29.80 Duodenitis without bleeding (principal); K29.50 Unspecified chronic gastritis without bleeding; K31.9 Disease of stomach and duodenum, unspecified; K21.0 Gastro-esophageal reflux disease with esophagitis; K44.9 Diaphragmatic hernia without obstruction or gangrene; E11.9 Type 2 diabetes mellitus without complications; M54.9 Dorsalgia, unspecified; Z85.038 Personal history of other malignant neoplasm of large intestine; Z79.84 Long term (current) use of oral hypoglycemic drugs; Z79.899 Other long term (current) drug therapy
CPT/HCPCS: 88305; 43239; J2250; J2001; J3010; J2704

== ENCOUNTER → 2018-02-27 | Outpatient (CLI) | payer MEDICARE ==
[2018-02-27 12:50] LABS: Blood Urea Nitrogen 15 mg/dL (9-20)
--- NOTE | 2018-02-27 13:40 | CT ---
EXAMINATION TYPE: CT abdomen w con DATE OF EXAM: 02/27/2018 COMPARISON: PET/CT localization CT dated 12/28/2017 INDICATION: Right upper quadrant pain x 5-7 days. DLP: 905 mGycm, Automated exposure control for dose reduction was used. CONTRAST: 100 mL of Isovue M300. Study performed with Oral Contrast TECHNIQUE: Axial images were obtained from above the diaphragm to the pubic rami in the axial plane a t 5 mm thick sections. Reconstructed images are reviewed on the computer in the coronal plane. FINDINGS: Limited CT sections are obtained the lung bases. The lung bases are clear. CT ABDOMEN: Liver: There are multiple lobular bordered hypodensities scattered throughout the liver. These were p resent previously likely related to metastatic disease. A larger lesion along the anterior right mid liver is stable in size a lesion within the posterior right mid liver likewise appears stable in size and anterior lateral right liver lesion is somewhat larger in size measuring 3.2 cm compared to prio r 2.5 cm. Series 3 image 23. Lesion in the superior right lobe liver near the diaphragm currently ruslan sures 3.5 cm which is increased from 2.3 cm. Spleen: Enlarged measuring 15.9 cm. Normal less than 12.5 cm. Pancreas: Slightly atrophic Adrenal glands: The adrenal glands are normal. Gallbladder: Surgically absent Kidneys: No masses are evident. No hydronephrosis is present. No cysts are present. Delayed images were obtained through the kidneys, which remain unremarkable. Aorta: Normal Inferior vena cava: Normal. Loops of bowel within the abdomen and upper pelvis are normal. There are loops of bowel which are incompletely distended or lack oral contrast limiting their evaluation. Osseous structures: No suspicious lytic or sclerotic lesions. Postsurgical changes are within the upp er lumbar spine with pedicle screws. Prior biopsy or bone lesion is in the left medial iliac wing pre sent previously and stable. No suspicious adenopathy is evident IMPRESSIONS: 1. Increased size and better conspicuity of lobulated liver lesions compatible with metastatic disea se
== END | disposition home or self-care (01) ==
LOC: RADCTMAIN 12:08
PROVIDERS: ATTEND Nurse Practitioner Adult Health
DX: K76.9 Liver disease, unspecified (principal)
CPT/HCPCS: 82565; 84520; 74160; J1642; Q9967